=== PATIENT | male | born 1950 | race Caucasian/White ===

== ENCOUNTER → 2017-02-09 | Outpatient (CLI) | payer OTHER ==
[~2017-02-09] MED LIST: ANTIVERT12.5 MG PO; ASPIRIN81 M1 PO; NO MEDICATIONS
--- NOTE | ~2017-02-09 | US10 ---
[id number] [facility]. [place], [place] [address] [id number] O MR#: [id number] Acc #: [id number] NAME: ERIKA ANTONIO : 1950 SEX: M STUDY DATE/TIME: 02/09/2017 10:35 UNIT: [facility] ROOM: STUDY DESCRIPTION: US Aorta Complete Attending Physician: Renee Mandujano A.P.R.N. Referring Physician: Renee Mandujano A.P.R.N. Ordering Physician: Renee Mandujano A.P.R.N. Primary Care Physician: Renee Mandujano A.P.R.N. MEDICAL IMAGING REPORT This report is preliminary unless electronic signature is present EXAM Ultrasound of the abdominal aorta 02/09/2017 INDICATIONS Abdominal aortic aneurysm screening secondary to a history of tobacco abuse 40 years. Quit smoking this year. Hyperlipidemia, hypertension type 2 diabetes. TECHNIQUE Sonographic imaging of the abdominal aorta was performed utilizing robledo-scale color Doppler and spectral analysis. No comparisons. FINDINGS These were the best images possible given the patient's functional status and body habitus. There is no evidence of abdominal aortic aneurysm. Maximum aortic diameter approaches approximately 2.7 cm in the proximal to mid aspect of the aorta. There appears to be atherosclerotic plaque present. IVC patent. IMPRESSION 1. No evidence of aortic aneurysm. Atherosclerotic disease. Dictated by... Jp Barahona M.D. THIS IS AN ELECTRONICALLY VERIFIED REPORT Jp Barahona M.D. at 02/10/2017 7:17 AM MELODIE/talya TD: 02/10/2017 00:10 JOB #: [id number] MEDICAL IMAGING REPORT Page 1 of 1 COPY
== END | disposition home or self-care (01) ==
LOC: CNIV 10:08
DX: Z13.6 Encounter for screening for cardiovascular disorders (principal); I70.0 Atherosclerosis of aorta; Z72.0 Tobacco use
CPT/HCPCS: 76770